=== PATIENT | male | born 1965 | race Caucasian/White ===

== ENCOUNTER 2018-03-13 18:47 | Inpatient (IN) | payer MEDICAID, OTHER ==
[~2018-03-13] VITALS: Ht 185.4 cm; Wt 128.8 kg
[2018-03-13] MEDS ORDERED: THIAMINE HCL(*) 200 MG/2 ML IN 100 MG, FOLIC ACID(*) 50 MG/10 ML INJ 1 MG, MULTIVITAMIN... IV ONE (18:53)
--- NOTE | 2018-03-13 19:19 | EKG ---
FACILITY: [facility] [place] PATIENT NAME: GIL BECK : [id number] MR: [id number] V: [id number] EXAM DATE: ORDERING PHYSICIAN: DANAE MASON TECHNOLOGIST: DALILA Test Reason : AMS Blood Pressure : / mmHG Vent. Rate : 100 BPM Atrial Rate : 100 BPM P-R Int : 144 ms QRS Dur : 094 ms QT Int : 350 ms P-R-T Axes : 067 -18 046 degrees QTc Int : 451 ms Normal sinus rhythm Normal ECG When compared with ECG of 10-SEP-2014 13:44, No significant change was found Confirmed by SHARON FINK ([id number]) on 03/13/2018 7:50:14 PM Referred By: Confirmed By:SHARON FINK
[2018-03-13 19:23] LABS: PLATELET COUNT, AUTOMATED 238 K/uL (150-450)
--- NOTE | 2018-03-13 20:05 | RADIOLOGY IMAGING REPORT ---
FACILITY: [facility] [place] PATIENT NAME: Adonay Batista : 1965 MR: [id number] V: [id number] EXAM DATE: ORDERING PHYSICIAN: DANAE MASON TECHNOLOGIST: Location: [facility] Patient: Adonay Batista : 1965 Visit/Account:[id number] Date of Sevice: 03/13/2018 EXAMINATION: CT head without IV contrast HISTORY: AMS. TECHNIQUE: Axial CT images of the head were obtained from the vertex to the skull base without IV c ontrast, with coronal and sagittal 2D reconstructed images. One of the following dose optimization techniques was utilized in the performance of this exam: Autom ated exposure control; adjustment of the mA and/or kV according to the patient's size; or use of an i terative reconstruction technique. Specific details can be referenced in the facility's radiology C T exam operational policy. COMPARISON: None. FINDINGS: The intracranial contents are unremarkable. No CT evidence of intracranial hemorrhage, mass lesion, or acute infarct. No midline shift or extra-axial fluid collections. Veronica-white differentiation is maintained. The calvarium is intact. The visualized paranasal sinuses and mastoid air cells are unopacified. IMPRESSION: Unremarkable noncontrast head CT. Report Dictated By: Asaf Ashley MD at 03/13/2018 7:58 PM Report E-Signed By: Asaf Ashley MD at 03/13/2018 8:01 PM [id number]
[2018-03-13] MEDS ORDERED: OLANZapine 10 MG VIAL IM ONLY ONE (20:10)
[2018-03-13] MEDS ORDERED: WATER STERILE 10 ML VIAL IM ONLY ONE (20:10)
--- NOTE | 2018-03-13 21:03 | ER Report ---
History and Physical Time Seen By MD: 18:47 Hx. of Stated Complaint: ETOH. UNCONCSCIOUS. SI HPI/ROS CHIEF COMPLAINT: Altered mental status, intoxicated,? Suicidal attempt HISTORY OF PRESENT ILLNESS: 52-year-old male brought in by EMS from home with altered mental status, extremely lethargic, responds to painful stimuli. Patient is grossly intoxicated. His family members found him and are concerned that he of overdose. EMS found that he was hypoglycemic with a glucose of 60. They gave him dextrose 50% 25 g IV with no improvement of his mental status. They also gave him Narcan without improvement of his metal status. Patient is on an emergency longterm placed by police. Patient was expressing suicidal jeffry ation. At 10 AM this morning to his family members. He does not have a specific plan, per their recollection when they were questioned. They do mention that he uses an [id number]-uhefclb sleep aid. They brought in a box of diphenhydramine 25 mg that he got at the [facility] [place]. The box contained 36 in bubble wrap of 12 each to of the 12 were intact. One had 4-8 tablets missing REVIEW OF SYSTEMS: Unable to obtain due to altered mental status. Allergies: Coded Allergies: No Known Allergies (Verified Allergy, Mild, 09/10/14) Home Meds Reported Medications Lorazepam (LORAZEPAM) 1 Mg Tab, PO ONCE, #1 TAB Take one tomorrow at 8:00 am. 09/17/14 Lorazepam (LORAZEPAM) 1 Mg Tab, PO ONCE, #1 TAB Take one tonight at 9:00 pm. 09/17/14 Multivits,Ca,Minerals/Iron/FA (Thera M Plus Tablet) 1 Each Tablet, 1 TAB PO QAM 09/17/14 Thiamine Hcl (VITAMIN B-1) 100 Mg Tablet, 100 MG PO QAM 09/17/14 Folic Acid (FOLIC ACID) 1 Mg Tablet, 1 MG PO QAM, TAB 09/17/14 Metoprolol Tartrate (METOPROLOL TARTRATE) 25 Mg Tablet, 1 TAB PO QAM, #30 TAB 0 Refills 09/17/14 Aspirin (ASPIRIN) 81 Mg Tab.chew, 81 MG PO QDAY, TAB.CHEW TAKE 1 TABLET BY MOUTH EVERY DAY 07/04/14 Lisinopril (LISINOPRIL) 20 Mg Tablet, 5 MG PO, #30 TAB 0 Refills 07/04/14 Past Medical/Surgical History Previous [facility] admission for alcohol detox,? History of RI, history of liver problems Reviewed Nurses Notes: Yes Old Medical Records Reviewed: Yes Hx Smoking: Yes Smoking Status: Heavy Tobacco Smoker Exposure to Second Hand Smoke?: Yes Hx Substance Use Disorder: No Constitutional Vital Sign - Last 24 Hours 03/13/18 03/13/18 03/13/18 03/13/18 18:47 18:52 18:57 19:03 Temp 98.1 Pulse 104 105 101 Resp 16 16 14 B/P (MAP) 139/95 128/100 (109) Pulse Ox 92 92 92 O2 Delivery Nasal Cannula 03/13/18 03/13/18 03/13/18 03/13/18 19:07 19:17 19:26 19:27 Pulse 117 107 104 Resp 25 28 28 Pulse Ox 92 92 92 O2 Flow Rate 2.0 03/13/18 03/13/18 03/13/18 03/13/18 19:37 19:47 19:52 19:57 Pulse ? 118 B/P (MAP) 128/87 (101) Pulse Ox 90 03/13/18 03/13/18 03/13/18 03/13/18 20:02 20:17 20:32 20:42 Pulse 118 123 106 B/P (MAP) 110/54 (72) Pulse Ox 93 96 91 03/13/18 03/13/18 03/13/18 03/13/18 20:47 20:52 21:00 21:07 Pulse 105 110 111 Resp 18 12 16 B/P (MAP) 128/85 (99) Pulse Ox 94 88 95 03/13/18 03/13/18 03/13/18 03/13/18 21:22 21:30 21:37 21:52 Pulse 115 123 136 Resp 17 19 25 B/P (MAP) 120/77 (91) Pulse Ox 94 94 97 03/13/18 03/13/18 03/13/18 03/13/18 22:00 22:07 22:21 22:22 Pulse 111 119 Resp 19 9 B/P (MAP) 90/65 (73) 117/74 (88) Pulse Ox 94 96 03/13/18 22:30 B/P (MAP) 193/166 (175) Intake and Output 03/13/18 03/13/18 03/14/18 15:00 23:00 07:00 Output Total 800 ml Balance -800 ml Physical Exam Vital signs stable, afebrile, pulse ox normal, agitated and restless. General Appearance: The patient is alert, has no immediate need for airway protection and no current signs of toxicity. Altered mental status, appears grossly alcohol intoxicated, slurring of his speech, a patient of the head and neck reveal no tenderness or trauma HEENT: Pupils equal and round no injection. PERRLA, EOMI oropharynx with odor of EtOH Respiratory: Chest is non tender, lungs are clear to auscultation. Cardiac: regular rate and rhythm Gastrointestinal: Abdomen is soft and non tender, no masses, bowel sounds normal. Musculoskeletal: Neck: Neck is supple and non tender. Extremities have full range of motion and are non tender. Skin: No rashes or lesions. DIFFERENTIAL DIAGNOSIS: After history and physical exam differential diagnosis was considered for altered mental status including but not limited to hypoglycemia, infectious process, electrolyte abnormality, overdose, suicidal gesture, suicidal attempt, head injury and intoxicants. Medical Decision Making Data Points Result Diagram: 03/13/18190303/13/181903 Laboratory Hematology Test 03/13/18 00:00 03/13/18 19:04 03/13/18 20:55 Urine Color Yellow Urine Clarity Clear Urine pH 6.0 pH (4.8-9.5) Urine Specific [place] 1.011 Urine Protein Negative mg/dL (NEGATIVE) Urine Glucose (UA) 50 mg/dL (NEGATIVE) Urine Ketones Negative mg/dL (NEGATIVE) Urine Blood Negative (NEGATIVE) Urine Nitrite Negative (NEGATIVE) Urine Bilirubin Negative (NEGATIVE) Urine Urobilinogen Negative mg/dL (0.2-1.9) Urine Leukocyte Esterase Negative (NEGATIVE) Urine RBC 1 /HPF (0-2/HPF) Urine WBC <1 /HPF (0-5/HPF) Urine Squamous Epithelial Cells None /LPF (NONE-FEW) Urine Bacteria Negative /HPF (NONE-FEW) Urine Mucus Few /HPF (NONE-FEW) Red Blood Count 5.79 M/uL (4.00-5.60) Mean Corpuscular Volume 93.3 fL (80.0-96.0) Mean Corpuscular Hemoglobin 31.5 pg (26.0-33.0) Mean Corpuscular Hemoglobin Concent 33.8 g/dL (32.0-36.0) Red Cell Distribution Width 15.2 % (11.5-14.5) Mean Platelet Volume 7.5 fL (7.2-11.1) Neutrophils (%) (Auto) 61.7 % (39.4-72.5) Lymphocytes (%) (Auto) 31.7 % (17.6-49.6) Monocytes (%) (Auto) 5.5 % (4.1-12.4) Eosinophils (%) (Auto) 0.4 % (0.4-6.7) Basophils (%) (Auto) 0.7 % (0.3-1.4) Nucleated RBC Relative Count (auto) 0.1 /100WBC Neutrophils # (Auto) 3.7 K/uL (2.0-7.4) Lymphocytes # (Auto) 1.9 K/uL (1.3-3.6) Monocytes # (Auto) 0.3 K/uL (0.3-1.0) Eosinophils # (Auto) 0.0 K/uL (0.0-0.5) Basophils # (Auto) 0.0 K/uL (0.0-0.1) Nucleated RBC Absolute Count (auto) 0.01 K/uL Carboxyhemoglobin 4.5 % (< 5.0) Sodium Level 145 mmol/L (137-145) Potassium Level 4.3 mmol/L (3.5-5.0) Chloride Level 107 mmol/L (98-107) Carbon Dioxide Level 21 mmol/L (22-30) Blood Urea Nitrogen 16 mg/dl (9-21) Creatinine 0.80 mg/dl (0.66-1.25) Glomerular Filtration Rate Calc > 60.0 Random Glucose 180 mg/dl (75-110) Lactate 3.4 mmol/L (0.7-2.1) Calcium Level 8.5 mg/dl (8.4-10.2) Magnesium Level 2.0 mg/dl (1.7-2.2) Total Bilirubin 0.4 mg/dl (0.2-1.3) Aspartate Amino Transf (AST/SGOT) 39 U/L (0-35) Alanine Aminotransferase (ALT/SGPT) 40 U/L (0-56) Alkaline Phosphatase 62 U/L (0-126) Ammonia 11 UMOL/L (9-33) Total Protein 7.3 g/dl (6.3-8.2) Albumin 4.2 g/dl (3.5-5.0) Salicylates Level < 10 mg/L Salicylate Last Dose Date unk Acetaminophen Level < 10 ug/ml Serum Alcohol 347 mg/dl Urine Opiates Screen Negative Urine Barbiturates Screen Negative Ur Tricyclic Antidepressants Screen Negative Urine Phencyclidine Screen Negative Urine Amphetamines Screen Negative Urine Benzodiazepines Screen Negative Urine Cocaine Screen Negative Urine Cannabinoids Screen Negative Chemistry Test 03/13/18 00:00 03/13/18 19:04 03/13/18 20:55 Urine Color Yellow Urine Clarity Clear Urine pH 6.0 pH (4.8-9.5) Urine Specific [place] 1.011 Urine Protein Negative mg/dL (NEGATIVE) Urine Glucose (UA) 50 mg/dL (NEGATIVE) Urine Ketones Negative mg/dL (NEGATIVE) Urine Blood Negative (NEGATIVE) Urine Nitrite Negative (NEGATIVE) Urine Bilirubin Negative (NEGATIVE) Urine Urobilinogen Negative mg/dL (0.2-1.9) Urine Leukocyte Esterase Negative (NEGATIVE) Urine RBC 1 /HPF (0-2/HPF) Urine WBC <1 /HPF (0-5/HPF) Urine Squamous Epithelial Cells None /LPF (NONE-FEW) Urine Bacteria Negative /HPF (NONE-FEW) Urine Mucus Few /HPF (NONE-FEW) White Blood Count 6.1 k/uL (4.5-11.0) Red Blood Count 5.79 M/uL (4.00-5.60) Hemoglobin 18.3 g/dL (14.0-18.0) Hematocrit 54.0 % (42.0-52.0) Mean Corpuscular Volume 93.3 fL (80.0-96.0) Mean Corpuscular Hemoglobin 31.5 pg (26.0-33.0) Mean Corpuscular Hemoglobin Concent 33.8 g/dL (32.0-36.0) Red Cell Distribution Width 15.2 % (11.5-14.5) Platelet Count 238 K/uL (150-450) Mean Platelet Volume 7.5 fL (7.2-11.1) Neutrophils (%) (Auto) 61.7 % (39.4-72.5) Lymphocytes (%) (Auto) 31.7 % (17.6-49.6) Monocytes (%) (Auto) 5.5 % (4.1-12.4) Eosinophils (%) (Auto) 0.4 % (0.4-6.7) Basophils (%) (Auto) 0.7 % (0.3-1.4) Nucleated RBC Relative Count (auto) 0.1 /100WBC Neutrophils # (Auto) 3.7 K/uL (2.0-7.4) Lymphocytes # (Auto) 1.9 K/uL (1.3-3.6) Monocytes # (Auto) 0.3 K/uL (0.3-1.0) Eosinophils # (Auto) 0.0 K/uL (0.0-0.5) Basophils # (Auto) 0.0 K/uL (0.0-0.1) Nucleated RBC Absolute Count (auto) 0.01 K/uL Carboxyhemoglobin 4.5 % (< 5.0) Glomerular Filtration Rate Calc > 60.0 Lactate 3.4 mmol/L (0.7-2.1) Calcium Level 8.5 mg/dl (8.4-10.2) Magnesium Level 2.0 mg/dl (1.7-2.2) Total Bilirubin 0.4 mg/dl (0.2-1.3) Aspartate Amino Transf (AST/SGOT) 39 U/L (0-35) Alanine Aminotransferase (ALT/SGPT) 40 U/L (0-56) Alkaline Phosphatase 62 U/L (0-126) Ammonia 11 UMOL/L (9-33) Total Protein 7.3 g/dl (6.3-8.2) Albumin 4.2 g/dl (3.5-5.0) Salicylates Level < 10 mg/L Salicylate Last Dose Date unk Acetaminophen Level < 10 ug/ml Serum Alcohol 347 mg/dl Urine Opiates Screen Negative Urine Barbiturates Screen Negative Ur Tricyclic Antidepressants Screen Negative Urine Phencyclidine Screen Negative Urine Amphetamines Screen Negative Urine Benzodiazepines Screen Negative Urine Cocaine Screen Negative Urine Cannabinoids Screen Negative Toxicology Test 03/13/18 19:04 03/13/18 20:55 Salicylates Level < 10 mg/L Salicylate Last Dose Date unk Acetaminophen Level < 10 ug/ml Serum Alcohol 347 mg/dl Urine Opiates Screen Negative Urine Barbiturates Screen Negative Ur Tricyclic Antidepressants Screen Negative Urine Phencyclidine Screen Negative Urine Amphetamines Screen Negative Urine Benzodiazepines Screen Negative Urine Cocaine Screen Negative Urine Cannabinoids Screen Negative Urinalysis Test 03/13/18 00:00 Urine Color Yellow Urine Clarity Clear Urine pH 6.0 pH (4.8-9.5) Urine Specific [place] 1.011 Urine Protein Negative mg/dL (NEGATIVE) Urine Glucose (UA) 50 mg/dL (NEGATIVE) Urine Ketones Negative mg/dL (NEGATIVE) Urine Blood Negative (NEGATIVE) Urine Nitrite Negative (NEGATIVE) Urine Bilirubin Negative (NEGATIVE) Urine Urobilinogen Negative mg/dL (0.2-1.9) Urine Leukocyte Esterase Negative (NEGATIVE) Urine RBC 1 /HPF (0-2/HPF) Urine WBC <1 /HPF (0-5/HPF) Urine Squamous Epithelial Cells None /LPF (NONE-FEW) Urine Bacteria Negative /HPF (NONE-FEW) Urine Mucus Few /HPF (NONE-FEW) EKG/Imaging EKG Interpretation 12 lead EK Rhythm: normal sinus rhythm [place]: normal QRS: normal ST segments: normal, no evidence of ischemia or dysrhythmia, no QT widening Imaging Results: CT scan of the head without contrast was obtained. The results of the study are no acute findings. The study was read by the radiologist. I viewed the images myself on the PACS system. ED Course/Re-evaluation Clinical Indication for ER IV: Hydration, IV Access ED Course Patient was admitted to an examination room. H&P was done. The differential diagnoses was considered. Patient grossly altered. He is a potential overdose. He appears alcohol intoxicated. Patient's placed on an emergency longterm by police. His diagnostic evaluation is undertaken. He is aggressively hydrated. EKG shows no QRS widening, no QT prolongation. There is potential report of diphenhydramine overdose along with alcohol. Patient laboratory studies show a blood alcohol of 350. Urinalysis tox screen is unremarkable. A CT scan of the head is performed which is negative for intracranial pathology. Patient was quite agitated and combative. He was ripping his lines. He had to be medicated with Zyprexa 5 mg IM. Patient's case was discussed with hospitalist who accepts patient for admission. 03/13/2018 10:05:50 pm case was discussed with Dr. Sahil Loera hospitalist on-call. The patient for admission. Decision to Disposition Date: Mar 13, 2018 Decision to Disposition Time: 22:02 Critical Care Time I spent a total of 90 minutes of critical care time in obtaining history, performing a physical exam, bedside monitoring of interventions, collecting and interpreting tests and discussion with consultants but not including time spent performing procedures. Depart Departure Latest Vital Signs Vital Signs Date Time Temp Pulse Resp B/P (MAP) Pulse Ox O2 Delivery O2 Flow Rate FiO2 03/13/18 22:30 193/166 (175) 03/13/18 22:22 119 9 96 03/13/18 19:26 2.0 03/13/18 18:52 98.1 Nasal Cannula Impression: Primary Impression: Altered mental status Additional Impressions: Suicide attempt Suicidal ideation Alcohol intoxication Diphenhydramine overdose Condition: Improved Disposition: Admitted from ER Referrals: AKIN MRATINEZ MD (PCP) Problem Qualifiers Primary Impression: Altered mental status Altered mental status type: stupor Qualified Codes: R40.1 - Stupor Additional Impressions: Alcohol intoxication Complication of substance-induced condition: uncomplicated Qualified Codes: F10.920 - Alcohol use, unspecified with intoxication, uncomplicated Diphenhydramine overdose Encounter type: initial encounter Injury intent: intentional self-harm Qualified Codes: T45.0X2A - Poisoning by antiallergic and antiemetic drugs, intentional self-harm, initial encounter DANAE MASON DO Mar 13, 2018 21:03
[2018-03-13] MEDS ORDERED: EMS NS 0.9%(*) 1000 ML BAG 1,000 ML IV ONE (22:45)
[2018-03-13] MEDS ORDERED: NS(*) 0.9% 1000 ML BAG 1,000 ML IV PRN (22:46)
[2018-03-13] MEDS ORDERED: INFLUENZA VIRUS VAC 0.5ML SYR IM ONLY ONE (22:50)
[2018-03-13] MEDS ORDERED: LORazepam 2 MG/ML VIAL IVP PRN (22:50)
[2018-03-13] MEDS ORDERED: LORazepam 1 MG TAB PO PRN (22:50)
--- NOTE | 2018-03-13 23:19 | History & Physical ---
History of Present Illness History of Present Illness 52yo male with CAD, h/o alcohol abuse who was brought to the ER for AMS. The history is from the ER provider and the patient's . He doesn't drink everyday, but he does drink on weekends. He was drinking last night. His tried to wake him up for work but he wouldn't get up. The sister of the patient came by at about 10am and he was awake and talkative. He was drunk then and expressed thoughts of hurting himself. He apparently continued to drink. By the time the patient's came home, he was passed out on the floor. He had apparently fallen out of bed. She couldn't get him to wake up, so called an ambulance. In the ER, the patient was able to answer some questions, and mentioned he had taken some pills. The family went home and found that there was a sleep aid that had evidence of being used contained Benadryl. He might have taken as many as 12, but it could be that he just takes them every night. He is not on any prescription medications and there was no evidence of other medications being taken. He doesn't use any illicit drugs. He smokes at least a pack a day of cigarettes. History Problems: (1) CAD (coronary artery disease) Status: Chronic (2) History of coronary artery stent placement Status: Chronic (3) Obesity Status: Chronic (4) History of shoulder surgery Status: Chronic (5) Alcohol abuse Status: Chronic (6) Alcohol withdrawal Status: Resolved Home Meds Reported Medications Lorazepam (LORAZEPAM) 1 Mg Tab, PO ONCE, #1 TAB Take one tomorrow at 8:00 am. 09/17/14 Lorazepam (LORAZEPAM) 1 Mg Tab, PO ONCE, #1 TAB Take one tonight at 9:00 pm. 09/17/14 Multivits,Ca,Minerals/Iron/FA (Thera M Plus Tablet) 1 Each Tablet, 1 TAB PO QAM 09/17/14 Thiamine Hcl (VITAMIN B-1) 100 Mg Tablet, 100 MG PO QAM 09/17/14 Folic Acid (FOLIC ACID) 1 Mg Tablet, 1 MG PO QAM, TAB 09/17/14 Metoprolol Tartrate (METOPROLOL TARTRATE) 25 Mg Tablet, 1 TAB PO QAM, #30 TAB 0 Refills 09/17/14 Aspirin (ASPIRIN) 81 Mg Tab.chew, 81 MG PO QDAY, TAB.CHEW TAKE 1 TABLET BY MOUTH EVERY DAY 07/04/14 Lisinopril (LISINOPRIL) 20 Mg Tablet, 5 MG PO, #30 TAB 0 Refills 07/04/14 Allergies: Coded Allergies: No Known Allergies (Verified Allergy, Mild, 09/10/14) Other Social/Family Hx See HPI. He works as a cook at [employer]. Hx Smoking: Yes Smoking Status: Heavy Tobacco Smoker Exposure to Second Hand Smoke?: Yes Hx Substance Use Disorder: No Review of Systems Other Unable to get any ROS from the patient. Exam Vital Signs Vital Signs Date Time Temp Pulse Resp B/P (MAP) Pulse Ox O2 Delivery O2 Flow Rate FiO2 03/13/18 22:30 193/166 (175) 03/13/18 22:22 119 9 96 03/13/18 19:26 2.0 03/13/18 18:52 98.1 Nasal Cannula General Appearance: Other (Resting comfortably. Breathing normally.) Neuro: Other (Opens eyes to voice and follows some commands) Eyes: PERRLA ENT: Other (Tacky MM) Cardiovascular: Other (Tachycardic, regular) Respiratory: Clear to Auscultation GI: Abd Soft and Non-Tender Extremities: No Edema Integumentary: No Jaundice, No Cyanosis Medical Decision Making Data Points Result Diagram: 03/13/18190303/13/181903 Item Value Date Time Lactate 3.4 mmol/L H 03/13/181903 Magnesium Level 2.0 mg/dl 03/13/181903 Total Bilirubin 0.4 mg/dl 03/13/181903 Aspartate Amino Transf (AST/SGOT) 39 U/L H 03/13/181903 Alanine Aminotransferase (ALT/SGPT) 40 U/L 03/13/181903 Alkaline Phosphatase 62 U/L 03/13/181903 Total Protein 7.3 g/dl 03/13/181903 Albumin 4.2 g/dl 03/13/181903 Hemoglobin 18.3 g/dL H 03/13/181903 Hematocrit 54.0 % H 03/13/181903 Platelet Count 238 K/uL 03/13/181903 Neutrophils (%) (Auto) 61.7 % 03/13/181903 Lymphocytes (%) (Auto) 31.7 % 03/13/181903 Carboxyhemoglobin 4.5 % 03/13/181903 Urine Glucose (UA) 50 mg/dL H 03/13/18 Urine RBC 1 /HPF 03/13/18 Urine WBC <1 /HPF 03/13/18 0000 Urine Squamous Epithelial Cells None /LPF 03/13/18 Urine Bacteria Negative /HPF 03/13/18 Item Value Date Time Salicylates Level < 10 mg/L 03/13/181903 Acetaminophen Level < 10 ug/ml 03/13/181903 Urine Cannabinoids Screen Negative 03/13/182054 Urine Cocaine Screen Negative 03/13/182054 Urine Benzodiazepines Screen Negative 03/13/182054 Urine Amphetamines Screen Negative 03/13/182054 Urine Phencyclidine Screen Negative 03/13/182054 Ur Tricyclic Antidepressants Screen Negative 03/13/182054 Urine Barbiturates Screen Negative 03/13/182054 Urine Opiates Screen Negative 03/13/182054 EKG / Imaging EKG Interpretation Vent. Rate : 100 BPM Atrial Rate : 100 BPM P-R Int : 144 ms QRS Dur : 094 ms QT Int : 350 ms P-R-T Axes : 067 -18 046 degrees QTc Int : 451 ms Normal sinus rhythm Normal ECG When compared with ECG of 10-SEP-2014 13:44, No significant change was found Confirmed by SHARON FINK ([id number]) on 03/13/2018 7:50:[address] - Unremarkable noncontrast head CT. Assessment and Plan Problems: (1) Altered mental status Status: Acute Assessment & Plan: He presented with difficulty to awaken the evening of admission. He likely had been drinking alcohol the night before and then continued to drink through the day. There is concern that he took Benadryl. He is tachycardic. BP is stable and QRS/QTc are wnl. His carboxyhemoglobin is at the appropriate level for a smoker. He has been emergently detained by the Police because of suicidal ideation expressed early in the day. He will be watched in the ICU. Will recheck APAP, salicylates, CMP and lactate. Will check troponin secondary to his h/o of a stent placement and then non-adherence to taking medications. He will be watched on telemetry and continued to hydrate. (2) Alcohol abuse Status: Acute Assessment & Plan: He has a h/o alcohol withdrawal requiring a significant amount of Ativan while in [place] a couple years ago. He, likely, isn't drinking as much now and his MCV and LFT's are consistent with that. He will be on CIWA and given IV Ativan as needed. (3) CAD (coronary artery disease) Status: Chronic Assessment & Plan: He had a stent placed about 10 years ago, but is not on any prescription medication nor regular ASA. Venous Thromboembolism Antithrombotics Is Pt On Any Antithrombotics?: No Exam Sepsis Risk: No Definite Risk Problem Qualifiers (1) Altered mental status: Altered mental status type: scoobyor Qualified Codes: R40.1 - SHARON Ellis MD Mar 13, 2018 23:19
[2018-03-13] MEDS: LORazepam 2 MG/ML VIAL IVP PRN (23:29)
[2018-03-13 23:39] VITALS: BP 103/50
[2018-03-14] VITALS (21 sets, daily range): BP systolic 87–165; BP diastolic 49–104; Ht 185.4 cm; Wt 128.8 kg
[2018-03-14] MEDS: LORazepam 2 MG/ML VIAL IVP PRN ×4 (00:31→04:43)
[2018-03-14 05:46] LABS: PLATELET COUNT, AUTOMATED 239 K/uL (150-450)
--- NOTE | 2018-03-14 06:12 | EKG ---
FACILITY: [facility] - [place] PATIENT NAME: GIL BECK : [id number] MR: [id number] V: [id number] EXAM DATE: ORDERING PHYSICIAN: SHARON FINK TECHNOLOGIST: DALILA Test Reason : AM EKG Blood Pressure : / mmHG Vent. Rate : 126 BPM Atrial Rate : 126 BPM P-R Int : 146 ms QRS Dur : 084 ms QT Int : 304 ms P-R-T Axes : 082 022 078 degrees QTc Int : 440 ms Sinus tachycardia Otherwise normal ECG When compared with ECG of 13-MAR-2018 19:02, No significant change was found Confirmed by SHARON FINK ([id number]) on 03/14/2018 6:53:02 AM Referred By: Confirmed By:SHARON FINK
[2018-03-14] MEDS ORDERED: FOLIC ACID 1 MG TAB PO SCH (09:00)
[2018-03-14] MEDS ORDERED: THIAMINE HCL 100 MG TAB PO SCH (09:00)
[2018-03-14] MEDS ORDERED: NS 0.9% IV ONE (09:20)
--- NOTE | 2018-03-14 10:20 | Hospitalist Progress Note ---
Subjective Progress Notes Subjective This patient was admitted for acute alcohol intoxication. He has remained somnolent overnight. Patient Complains of: Cardiovascular: No: Chest Pain Respiratory: No: Shortness of Breath Physical Exam Vital Signs Date Time Temp Pulse Resp B/P (MAP) Pulse Ox O2 Delivery O2 Flow Rate FiO2 03/14/18 10:00 114 17 150/82 (104) 91 Room Air 03/14/18 07:09 98.4 03/14/18 04:44 5.0 Intake and Output 03/14/18 06:59 Intake Total 2000 ml Output Total 800 ml Balance 1200 ml Intake Oral 0 ml IV Total 2000 ml Output Urine Total 800 ml # Voids 0 Cardiovascular: Regular Rate and Rhythm Respiratory: Clear to Auscultation Result Diagram: 03/14/18 0523 03/14/18 0523 Item Value Date Time Lactate 3.7 mmol/L *H 03/14/18 0858 Assessment and Plan Problems: (1) Alcohol intoxication Status: Acute Assessment & Plan: He did present with excessive somnolence secondary to alcohol. He also reportedly made threats to family that he was trying to kill himself. He was placed on an emergency usp by police. (2) Altered mental status Status: Acute Assessment & Plan: Secondary to alcohol intoxication. He was initially thought to have taken additional substances, but his toxicology screen was negative. He is maintaining his airway. (3) Lactic acidosis Assessment & Plan: Secondary to alcohol. We have initiated a fluid bolus. A repeat lactate is pending. (4) CAD (coronary artery disease) Status: Chronic Assessment & Plan: He had a stent placed about 10 years ago, but is not on any prescription medication nor regular ASA. Exam Sepsis Risk: No Definite Risk Problem Qualifiers (1) Alcohol intoxication: Complication of substance-induced condition: uncomplicated Qualified Codes: F10.920 - Alcohol use, unspecified with intoxication, uncomplicated (2) Altered mental status: Altered mental status type: stupor Qualified Codes: R40.1 - Stupor AKIN MARIE DO Mar 14, 2018 10:19
--- NOTE | 2018-03-14 12:20 | BHS - Psychiatric Evaluation ---
ER - Title 25 MHE Evaluation Title 25 Evaluation Patient Detained By: Law Enforcement Referral Source: Professional: Law Enforcement Date Patient Detained: Mar 13, 2018 Time Patient Detained: 18:45 Date Long Term Expires: Mar 16, 2018 Time Long Term Expires: 18:45 Legal Status: Police Hold: No Legal Status: Residence: [facility] Resident, State Resident Assessment Data Provided By: Patient, Law Enforcement ([id number]), Other Source HPI/ROS: From Dr. Leif Rock, "52-year-old male brought in by EMS from home with altered mental status, extremely lethargic, responds to painful stimuli. Patient is grossly intoxicated. His family members found him and are concerned that he of overdose. EMS found that he was hypoglycemic with a glucose of 60. They gave him dextrose 50% 25 g IV with no improvement of his mental status. They also gave him Narcan without improvement of his metal status. Patient is on an emergency usp placed by police. Patient was expressing suicidal ideation. At 10 AM this morning to his family members. He does not have a specific plan, per their recollection when they were questioned. They do mention that he uses an mozc-hty-dlrihxw sleep aid. They brought in a box of diphenhydramine 25 mg that he got at the [employer] store. The box contained 36 in bubble wrap of 12 each to of the 12 were intact. One had 4-8 tablets missing." Admit due to SI or Attempt: Yes Suicide Plan: Has Plan w/out Access Current Suicide Plan Denies Alcohol or Drugs Involved: Yes (Clinically high blood alcohol, in the 300 range) Is Patient Info Reliable: No (patient denies any suicidal ideation at all. Does not remember being brought to the hospital. Possible patient had blacked out.) Is Collateral Info Reliable: Yes (Talked to patient's who feels her got very drunk. She stated she does not believe he is suicidal or has had ideation and or intent beyond what he said to a sahkoa-ku-zso.) Mental Status Exam General Appearance: Unkept Speech: Clear Mood: Other (Shows no signs of emotional distress. Says stress in his life is not inordinate and he is not hopeless.) Affect: Flat, Anxious Thought Content: Suicidal Ideation (Denies) Cognition: Alert & Oriented-Person, Alert & Oriented-Place; No Alert & Oriented-Time, No Fzznx-Caicfmtb-Jivmjjxrr Memory: Immediate Insight Judgment: Poor Sleep: Normal Hallucinations: Denies Delusions: Denies Current Risk & History Current Dangerous Risk Assessm: Current Suicide Ideation (Denies), Current Suicide Attempt (Overdose on OTC sleep aid.) Past Dangerous Risk Assessm: Other (patient's feels he drinks far too much alcohol and puts himself at risk.) Prior Alcohol/Drug Abuse Patient is reported to use drugs in distant past. Previous Suicide Attempt: No Previous Attempt (Patient denies any previous suicide attempts or ideation. ) Previous Psychiatric Illness: Yes (Safe detox/withdrawal from alcohol at [facility] in 2015) Previous Psychiatric Treatment: Yes (Alcohol Use Disorder) Risk Assessment & Disposition Evaluated Risk Assessment: Patient risk of taking his life/completing suicide is low. He says he was "drunk" not suicidal when a family member called Law Enforcement concerned. 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 He knows that any drinking he does threatens his prognosis of health and vigor. Both patient and patient say he has never expressed suicidal ideation before, not has he made an attempt on his life. Patient needs treatment to address serious alcohol use. Continued use of alcohol could certainly endanger patient's life, but he is not imminently a danger to himself. Impression: Primary Impression: Altered mental status Additional Impressions: Alcohol intoxication Suicidal ideation Suicide attempt Diphenhydramine overdose Meets Mental Illness Req.: No Meets Dangerousness Req.: No Emergency Long Term to be: Lifted Decision Comment: Patient risk of taking his life/completing suicide is low. He says he was "drunk" not suicidal when a family member called Law Enforcement concerned. 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 He knows that any drinking he does threatens his prognosis of health and vigor. Both patient and patient say he has never expressed suicidal ideation before, not has he made an attempt on his life. Patient needs treatment to address serious alcohol use. Continued use of alcohol could certainly endanger patient's life, but he is not imminently a danger to himself. Date of Decision: Mar 14, 2018 Time of Decision: 13:51 Patient is Medically Stable at: No Disposition: ICU Problem Qualifiers Primary Impression: Altered mental status Altered mental status type: stupor Qualified Codes: R40.1 - Stupor Additional Impressions: Alcohol intoxication Complication of substance-induced condition: uncomplicated Qualified Codes: F10.920 - Alcohol use, unspecified with intoxication, uncomplicated Diphenhydramine overdose Encounter type: initial encounter Injury intent: intentional self-harm Qualified Codes: T45.0X2A - Poisoning by antiallergic and antiemetic drugs, intentional self-harm, initial encounter CHANA STEWART SURGERY ATTENDANT Mar 14, 2018 12:20
--- NOTE | 2018-03-14 16:22 | Hospitalist Depart ---
Discharge Summary Reason for Hosp/Final Diag: (1) Alcohol intoxication Status: Acute Hospital Course & Plan: He did present with excessive somnolence secondary to alcohol. He also reportedly made threats to family that he was trying to kill himself. He was placed on an emergency long-term by police. His hold has been lifted by the mental health examiner. Information regarding resources have been provided by behavioral health. He is now sober and ready for discharge. (2) Altered mental status Status: Acute Hospital Course & Plan: Secondary to alcohol intoxication. He was initially thought to have taken additional substances, but his toxicology screen was negative. (3) Lactic acidosis Hospital Course & Plan: Secondary to alcohol. This resolved with IV fluids. (4) CAD (coronary artery disease) Status: Chronic Hospital Course & Plan: He had a stent placed about 10 years ago, but is not on any prescription medication nor regular ASA. Departure Latest Vital Signs Vital Signs 03/14/18 03/14/18 04:44 13:00 Pulse 119 Resp 23 B/P (MAP) 158/90 (112) Pulse Ox 90 O2 Delivery Room Air O2 Flow Rate 5.0 Weight (Pounds): 284 Result Diagram: 03/14/1852203/14/18522 Condition: Improved Discharge: Home, Self Care Discharge Instructions Home Meds Reported Medications Multivits,Ca,Minerals/Iron/FA (Thera M Plus Tablet) 1 Each Tablet, 1 TAB PO QAM 09/17/14 Thiamine Hcl (VITAMIN B-1) 100 Mg Tablet, 100 MG PO QAM 09/17/14 Folic Acid (FOLIC ACID) 1 Mg Tablet, 1 MG PO QAM, TAB 09/17/14 Metoprolol Tartrate (METOPROLOL TARTRATE) 25 Mg Tablet, 1 TAB PO QAM, #30 TAB 0 Refills 09/17/14 Aspirin (ASPIRIN) 81 Mg Tab.chew, 81 MG PO QDAY, TAB.CHEW TAKE 1 TABLET BY MOUTH EVERY DAY 07/04/14 Lisinopril (LISINOPRIL) 20 Mg Tablet, 5 MG PO, #30 TAB 0 Refills 07/04/14 Discontinued Reported Medications Lorazepam (LORAZEPAM) 1 Mg Tab, PO ONCE, #1 TAB Take one tomorrow at 8:00 am. 09/17/14 Lorazepam (LORAZEPAM) 1 Mg Tab, PO ONCE, #1 TAB Take one tonight at 9:00 pm. 09/17/14 Diet: Regular Activity: As Tolerated Copies to: AKIN MARTINEZ MD ; Venous Thromboembolism Antithrombotics Is Pt On Any Antithrombotics?: No Problem Qualifiers (1) Alcohol intoxication: Complication of substance-induced condition: uncomplicated Qualified Codes: F10.920 - Alcohol use, unspecified with intoxication, uncomplicated (2) Altered mental status: Altered mental status type: stupor Qualified Codes: R40.1 - Stupor AKIN MARIE DO Mar 14, 2018 16:21
== END 2018-03-14 17:39 | disposition home or self-care (01) | DRG 918 ==
LOC: ER 19:01 → ICU 22:33
PROVIDERS: ADMIT Internal Medicine; ATTEND Internal Medicine
DX: T45.0X2A Poisoning by antiallergic and antiemetic drugs, intentional self-harm, initial encounter (principal); E87.2 Acidosis; R45.851 Suicidal ideations; F10.920 Alcohol use, unspecified with intoxication, uncomplicated; R40.1 Stupor; Y90.8 Blood alcohol level of 240 mg/100 ml or more; I25.10 Atherosclerotic heart disease of native coronary artery without angina pectoris; Z95.0 Presence of cardiac pacemaker; I25.2 Old myocardial infarction; Z72.0 Tobacco use; Z68.37 Body mass index [BMI] 37.0-37.9, adult; E66.9 Obesity, unspecified
CPT/HCPCS: 36415; 70450; 80305; 80320; 80329; 81001; 82040; 82140; 82247; 82310; 82374; 82375; 82435; 82565; 82947; 83605; 83735; 84075; 84132; 84155; 84295; 84443; 84450; 84460; 84484; 84520; 85025; 93005; 96365; 96366; 96372; 99284; 99291; 99292; A4216; J2060; J3411; J3475; J3490; J7030

== ENCOUNTER → 2018-03-13 | Outpatient (CLI) | payer SELFPAY ==
[~2018-03-13] MED LIST: ALBU8.5H12 IH; ASPI81TA94 PO; CLAR-13 PO; FOLI-68 PO; LISI20TA29 PO; LOR1 PO; METO-253 PO; METO25TA93 PO; MULT-7 PO; NO RTN MEDS; SIMV-49 PO; THIA100T20 PO
[2018-03-14 12:59] VITALS: BMI 37.5
== END ==
LOC: AMB 18:10
PROVIDERS: ATTEND Nurse Practitioner
DX: F10.220 Alcohol dependence with intoxication, uncomplicated (principal); E16.2 Hypoglycemia, unspecified; R41.82 Altered mental status, unspecified; R45.851 Suicidal ideations
CPT/HCPCS: A0425; A0427